=== PATIENT | male | born 1945 | race Caucasian/White ===

== ENCOUNTER → 2021-05-18 09:23 | Outpatient (CLI) | payer MEDICARE, SELFPAY ==
--- NOTE | 2021-05-19 10:40 | PFT ---
INTRODUCTION: The patient is a 76-year-old male that presents for pulmonary function studies secondary to a diagnosis of COPD. Respiratory therapy reported good patient effort. Bronchodilators were used during testing. INTERPRETATION: Forced expiration spirometry demonstrates the presence of a moderate large airways obstructive ventilatory defect. There was a significant response to aerosolized bronchodilators. Spirograms are of good quality and plateau gradually indicating slow emptying of the lungs. Body plethysmography was performed and revealed a decreased TLC to 4.28 L, 72% of predicted, indicative of a mild restrictive ventilatory impairment. Diffusing capacity by single breath CO is mildly reduced at 66% of predicted. IMPRESSION: Partially reversible moderate mixed ventilatory defect with mild reduction in diffusing capacity.
== END ==
PROVIDERS: PCP Physician Assistant; Referring Provider Internal Medicine Critical Care Medicine; Visit Provider Internal Medicine Critical Care Medicine
DX: J44.9 Chronic obstructive pulmonary disease, unspecified (principal)
CPT/HCPCS: 94060; 94726; 94729

== ENCOUNTER → 2022-11-18 | Outpatient (CLI) | payer MEDICARE, SELFPAY ==
[2022-11-18 11:23] VITALS: PULSE 63; PULSE 66; PULSE 70; PULSE 72; PULSE 73; PULSE 74; PULSE 94; O2SAT 94; O2SAT 95; O2SAT 97
--- NOTE | 2022-11-19 10:59 | WT_ITS ---
PSN 6 Minute Walk Test 6 Minute Walk Test 6 Minute Walk Test: 6 Minute Walk Test PSN:6-Minute Walk Test Start: 11/18/22 11:23 Freq: Status: Active Protocol: [id number] Document 11/18/22 11:23 [facility] (Rec: 11/18/22 11:26 [facility] [id number]) 6 Minute Walk Test Date Performed 11/18/22 Time Performed 11:15 Height 5 ft 7 in Weight: 164 lb Weight in Pounds 164.[address]: Dr Martínez Assistive device used: None Pre-test Oxygen Delivery Method Room Air Pulse Ox 97 Pulse Rate (60-100) 63 Dyspnea Triston Scale (0-10) 0 Exertion Triston Scale (6-20) 6 1st minute Oxygen Delivery Method Room Air Pulse Ox 95 Pulse Rate (60-100) 70 2nd minute Oxygen Delivery Method Room Air Pulse Ox 95 Pulse Rate (60-100) 72 3rd minute Oxygen Delivery Method Room Air Pulse Ox 95 Pulse Rate (60-100) 74 4th minute Oxygen Delivery Method Room Air Pulse Ox 94 Pulse Rate (60-100) 73 5th minute Oxygen Delivery Method Room Air Pulse Ox 95 Pulse Rate (60-100) 74 6th minute Oxygen Delivery Method Room Air Pulse Rate (60-100) 94 Dyspnea Triston Scale (0-10) 74 Exertion Triston Scale (6-20) 0 Number of Rests Taken 11 Post-test Oxygen Delivery Method Room Air Pulse Ox 95 Pulse Rate (60-100) 66 Full Laps Walked 16 Partial Lap, Number of Tiles Walked 27 Total Distance Walked (ft) 971 Interpretation Interpretation: The patient ambulated 971 feet over the course of 6 minutes beginning on room air without assistive devices. Pretesting oxygen saturation was noted to be 97%. With ambulation, the yahir oxygen saturation was 94%. There was no significant exertional oxygen desaturation. Recommendations Recommendations: There is no indication for the use of supplemental oxygen at this time.
== END | disposition home or self-care (01) ==
LOC: PSN 10:49
PROVIDERS: PCP Physician Assistant; Referring Provider Internal Medicine Critical Care Medicine; Visit Provider Internal Medicine Critical Care Medicine
DX: J44.9 Chronic obstructive pulmonary disease, unspecified (principal)
CPT/HCPCS: 94618

== ENCOUNTER → 2022-11-22 | Outpatient (CLI) | payer MEDICARE, SELFPAY ==
--- NOTE | 2022-11-26 15:25 | PFTCOMP_ITS ---
Complete pulmonary function testing report Patient: Keyur Ochoa Date of 1945 Date of study November 22, 2022 Referring physician: Tai Martínez DO Indication: Former smoker, COPD. Spirometry pre and post bronchodilator showed: 1. Probable moderate airway obstruction. The FVC was 58% predicted FEV1 53% predicted FEV1/FVC 64% 2. No evidence of response to bronchodilator 3 moderate restriction is suggested by a forced vital capacity of 58% postbronchodilator. See lung volume studies below. 4. The manufacturing test technician comments indicated Good patient effort. The test met te chnical standards of acceptability and reproducibility. 5. Review of the flow volume loop and the flow volume curves corroborate both restriction and obstruction present. 6. Compared to the prior spirometry dated 05/18/2021, there has been no significant change. Lung volume studies by plethysmography confirm moderate restriction without hyperinflation. 1. The total lung capacity is 59% predicted, FVC 56%, IC 47%, FRC 63%. 2. RV was 53%, RV/TLC was 91% consistent with no hyperinflation. 3. Compared to prior plethysmographic lung volumes, the total lung capacity has decreased 23% and the residual volume decreased by 43%. This is a significant decrease. Diffusing capacity by single breath carbon monoxide technique showed: 1. Mildly decreased gas exchange, which normalized when adjusted for lung volumes. 2. Compared to diffusing capacity 05/18/2021, the DLCO has improved by 6%. This is not a significant change. Contreras Galaviz MD [facility] Pulmonary Medicine [facility] November 26, 2022 3:30 PM
== END | disposition home or self-care (01) ==
LOC: PSN 12:50
PROVIDERS: PCP Physician Assistant; Referring Provider Internal Medicine Critical Care Medicine; Visit Provider Internal Medicine Critical Care Medicine
DX: J44.9 Chronic obstructive pulmonary disease, unspecified (principal)
CPT/HCPCS: 94060; 94726; 94729